=== PATIENT | male | born 1950 | race Hispanic/Latino ===

== ENCOUNTER 2023-05-18 19:30 | Inpatient (IN) | payer BC, MEDICARE ==
[2023-05-18] VITALS (8 sets, daily range): BP systolic 112–178; BP diastolic 45–71; PULSE 56–72; RESP 10–13; O2SAT 98
[~2023-05-18] VITALS: Ht 167.6 cm; Wt 108.0 kg
[2023-05-18] MEDS ORDERED: ROCURONIUM 10MG/1ML SYR 10 MG/ML ML ONE (21:14)
[2023-05-18 21:25] LABS: ABG BASE EXCESS -11.9 mmol/L (-2.0-3.0); ABG HCO3 16.1 mmol/L (21.0-28.0); ABG OXYGEN SATURATION 89.6 % (95.0-99.0); ABG PCO2 45 mmHg (35-48); ABG PH 7.174 (7.35-7.450); CARBON MONOXIDE 0.3; HHb 10.4; PO2, ARTERIAL BG 75.2 mmHg (83.0-108.0); VENT MODE, BG VC (ROOM AIR)
[2023-05-18] MEDS ORDERED: TRAMADOL HCL 50 MG TABLET PO PRN ×2 (21:30)
[2023-05-18] MEDS ORDERED: ACETAMINOPHEN 325 MG TAB PO PRN (21:30)
[2023-05-18] MEDS ORDERED: SODIUM BICARB 50MEQ 50ML VIAL 50 ML ONE (21:38)
[2023-05-18] MEDS ORDERED: SODIUM BICARB 50MEQ 50ML VIAL 150 ML ONE ×2 (21:38→22:07)
[2023-05-18] MEDS ORDERED: FENTANYL CITRATE PF 50 MCG/1 ML 5ML AMP IV ONE (21:53)
[2023-05-18 22:00] LABS: ABG BASE EXCESS -3.7 mmol/L (-2.0-3.0); ABG HCO3 20.8 mmol/L (21.0-28.0); ABG PCO2 36 mmHg (35-48); ABG PH 7.383 (7.35-7.450); CARBON MONOXIDE 0.3; PO2, ARTERIAL BG 73.3 mmHg (83.0-108.0); VENT MODE, BG SIMV (ROOM AIR)
[2023-05-18] MEDS ORDERED: DEXTROSE 50%-WATER 50 ML DISP.SYRIN IV ONE (22:05)
[2023-05-18] MEDS ORDERED: PROPOFOL 1000 MG/100 ML 100 ML IV ONE (22:54)
[2023-05-18 23:45] LABS: HEMATOCRIT 31.3 % (42-54); MEAN CORPUSCULAR HGB CONC 33.2 g/dL (32.0-36.0); MEAN CORPUSCULAR VOLUME 90.2 fL (79-99); NUCLEATED RED BLOOD CELLS 0.2 % (0.0-0.19); PLATELET COUNT (AUTO) 174 K/uL (130-400); RED BLOOD CELL COUNT(AUTO) 3.47 MIL/uL (4.50-6.20); RED CELL DISTRIBUTION WIDTH 13.9 % (11.0-15.5)
[2023-05-18 23:47] LABS: WHITE BLOOD COUNT (AUTO) 33.5 K/uL (4.8-10.8)
[2023-05-19] VITALS (101 sets, daily range): BP systolic 91–202; BP diastolic 38–129; PULSE 44–77; RESP 6–35; TEMP 98.6–99; O2SAT 10–100
[2023-05-19 00:15] LABS: ALBUMIN 2.2 g/dL (3.5-5.0); BILIRUBIN,TOTAL 1.4 mg/dL (0.2-1.0); CREATININE 2.8 mg/dL (0.5-1.5); MAGNESIUM 2.2 mg/dL (1.80-2.40); PHOSPHORUS 7.3 mg/dL (2.5-4.9); POTASSIUM 4.5 mmol/L (3.5-5.1); TOTAL PROTEIN, SERUM 4.7 g/dL (6.0-8.3)
[2023-05-19 00:18] LABS: ABG BASE EXCESS -4.6 mmol/L (-2.0-3.0); ABG HCO3 20.7 mmol/L (21.0-28.0); ABG OXYGEN SATURATION 95.2 % (95.0-99.0); ABG PCO2 39 mmHg (35-48); ABG PH 7.342 (7.35-7.450); CARBON MONOXIDE 0.3; HHb 4.8; PO2, ARTERIAL BG 89.7 mmHg (83.0-108.0); VENT MODE, BG AC (ROOM AIR)
[2023-05-19 00:31] LABS: PARTIAL THROMBOPLASTIN TIME 48.7 SEC (26.3-35.5)
[2023-05-19 00:39] LABS: BODY FLUID RBC 1422372 /cu. mm.; BODY FLUID WBC 6345 /cu. mm.
[2023-05-19 00:42] LABS: INR 4.1 (0.85-1.15); PROTHROMBIN TIME 43.4 SEC (9.6-11.6)
[2023-05-19 01:03] LABS: AMYLASE,BODY FLUID 11 U/L; GLUCOSE,BODY FLUID 11 mg/dL (1-40)
[2023-05-19 01:16] LABS: APPEARANCE BODY FLUID BLOODY (CLEAR); COLOR,BODY FLUID RED (LT YELLOW); PH, BODY FLUID 9; SPECIMENTYPE,BODY FLUID PERICARDIAL; TOTAL VOLUME,BODY FLUID 30 mL
[2023-05-19 01:24] LABS: BAND NEUTROPHILS % (MANUAL) 6 % (0-2); LYMPHOCYTES % (MANUAL) 2 % (22-44); MONOCYTES % (MANUAL) 6 % (2-9); SEGMENTED NEUTROPHILS % 86 % (40-70); TOTAL CELLS COUNTED 100
[2023-05-19 01:25] LABS: MAN.DIFF COMMENT-IMPRESSION MANUAL DIFFERENTIAL; PLATELET MORPHOLOGY COMMENT ADEQUATE; WBC MORPHOLOGY CONSISTENT W/DIFF
[2023-05-19 01:29] LABS: BF LYMPHOCYTE 4 %; BF MONOCYTE 2 %; BF TOTAL CELLS COUNTED 100
[2023-05-19] MEDS ORDERED: EPINEPHRINE PF 1MG (1:1,000) 10 MG in 0.9% NACL 250ML 240 ML IV PRN (02:00)
[2023-05-19] MEDS ORDERED: EPINEPHRINE IV PRN (02:00)
[2023-05-19] MEDS ORDERED: NOREPINEPHRINE 8MG/NS 250ML PREMIX IV SCH (02:00)
[2023-05-19] MEDS ORDERED: LACTATED RINGERS 1000ML 1,000 ML IV ONE (02:00)
[2023-05-19] MEDS ORDERED: NACL 0.9% IV PRN (02:00)
[2023-05-19] MEDS ORDERED: LACTATED RINGERS 1000ML IV SCH (02:00)
[2023-05-19] MEDS ORDERED: CEFAZOLIN SODIUM 1 GM VIAL IVPB SCH (05:00)
[2023-05-19 05:02] LABS: HEMATOCRIT 31.6 % (42-54); MEAN CORPUSCULAR HEMOGLOBIN 29.9 pg (27.0-33.0); MEAN CORPUSCULAR HGB CONC 33.2 g/dL (32.0-36.0); NUCLEATED RED BLOOD CELLS 0.3 % (0.0-0.19); RED BLOOD CELL COUNT(AUTO) 3.51 MIL/uL (4.50-6.20)
[2023-05-19 05:09] LABS: WHITE BLOOD COUNT (AUTO) 36.8 K/uL (4.8-10.8)
[2023-05-19] MEDS: PROPOFOL 1000 MG/100 ML IV PRN ×2 (05:12→11:41)
[2023-05-19 05:21] LABS: CREATININE 2.9 mg/dL (0.5-1.5); MAGNESIUM 2.2 mg/dL (1.80-2.40); PHOSPHORUS 7.2 mg/dL (2.5-4.9)
[2023-05-19] MEDS ORDERED: ALBUMIN (HUMAN) 5% 250 ML IV ONE (08:30)
[2023-05-19] MEDS ORDERED: PHARMACY COMMUNICATION MISC SCH (08:30)
[2023-05-19 08:31] LABS: ABG BASE EXCESS -1.4 mmol/L (-2.0-3.0); ABG HCO3 23.1 mmol/L (21.0-28.0); ABG OXYGEN SATURATION 98.3 % (95.0-99.0); ABG PCO2 38 mmHg (35-48); ABG PH 7.404 (7.35-7.450); CARBON MONOXIDE 0.3; HHb 1.7; PO2, ARTERIAL BG 146.7 mmHg (83.0-108.0); VENT MODE, BG AC-VC (ROOM AIR)
[2023-05-19] MEDS ORDERED: SODIUM BICARB 50MEQ 50ML VIAL IV ONE (09:00)
[2023-05-19] MEDS: CEFAZOLIN SODIUM 2 GM VIAL IVPB SCH ×2 (09:13→17:04)
[2023-05-19] MEDS: PHYTONADIONE 10 MG in 0.9%NACL 50ML 50 ML IVPB SCH (09:14)
[2023-05-19] MEDS ORDERED: ALBUMIN (HUMAN) 5% 250 ML IV SCH (09:30)
[2023-05-19] MEDS: ZOSYN 3.375GM+NS 50ML 50 ML IVPB SCH ×2 (10:21→20:18)
[2023-05-19] MEDS ORDERED: DEXTROSE 50%-WATER 50 ML DISP.SYRIN IV PRN (11:00)
[2023-05-19] MEDS ORDERED: GLUCAGON 1MG KIT 1 MG ML IM PRN (11:00)
[2023-05-19 11:27] LABS: ABG OXYGEN SATURATION 66.5 % (95.0-99.0); BASE EXCESS,VENOUS BLOOD GAS 0.1 (-2.0-3.0); HCO3,VENOUS BLOOD GAS 25.8 (21.0-28.0); PCO2,VENOUS BLOOD GAS 46 (35-48); PH,VENOUS BLOOD GAS 7.368 (7.350-7.450); PO2,VENOUS BLOOD GAS 35.9 mmHg (35.0-45.0); VENT MODE, BG AC-VC (ROOM AIR)
[2023-05-19] MEDS: INSULIN HUMULIN R 100 UNIT/ML 3ML SQ SCH ×3 (11:30→20:47)
[2023-05-19 11:47] LABS: HEMOGLOBIN A1C 7.5 % (4.0-6.0)
[2023-05-19 12:11] LABS: ABG BASE EXCESS -0.2 mmol/L (-2.0-3.0); ABG OXYGEN SATURATION 94.4 % (95.0-99.0); ABG PCO2 37 mmHg (35-48); ABG PH 7.426 (7.35-7.450); CARBON MONOXIDE 0.3; HHb 5.6; PO2, ARTERIAL BG 79.4 mmHg (83.0-108.0); VENT MODE, BG AC-VC (ROOM AIR)
[2023-05-19] MEDS ORDERED: SODIUM BICARB 50MEQ 50ML VIAL IV PRN (13:00)
[2023-05-19] MEDS ORDERED: MAGNESIUM 2GM PREMIX 50ML 50 ML IV PRN (13:00)
[2023-05-19 13:35] LABS: ABG BASE EXCESS 0.1 mmol/L (-2.0-3.0); ABG HCO3 23.5 mmol/L (21.0-28.0); ABG OXYGEN SATURATION 94.1 % (95.0-99.0); ABG PCO2 34 mmHg (35-48); ABG PH 7.462 (7.35-7.450); CARBON MONOXIDE 0.3; HHb 5.9; PO2, ARTERIAL BG 74.2 mmHg (83.0-108.0); VENT MODE, BG SIMV VC PS10 (ROOM AIR)
[2023-05-19] MEDS ORDERED: CALCIUM GLUC 1GM/10ML VIAL ONE ×4 (13:39→20:16)
[2023-05-19] MEDS: CALCIUM GLUC 1GM 1 GM in 0.9%NACL 50ML 50 ML IV PRN ×4 (13:42→20:18)
[2023-05-19 14:35] LABS: ABG BASE EXCESS 1.3 mmol/L (-2.0-3.0); ABG HCO3 23.9 mmol/L (21.0-28.0); ABG OXYGEN SATURATION 95.1 % (95.0-99.0); ABG PCO2 31 mmHg (35-48); ABG PH 7.505 (7.35-7.450); CARBON MONOXIDE 0.3; HHb 4.9; PO2, ARTERIAL BG 77.5 mmHg (83.0-108.0); VENT MODE, BG SIMV-VC PS10 (ROOM AIR)
[2023-05-19 15:35] LABS: ABG BASE EXCESS 3.4 mmol/L (-2.0-3.0); ABG OXYGEN SATURATION 93.9 % (95.0-99.0); ABG PCO2 33 mmHg (35-48); ABG PH 7.519 (7.35-7.450); CARBON MONOXIDE 0.3; HHb 6.1; PO2, ARTERIAL BG 67.7 mmHg (83.0-108.0); VENT MODE, BG SIMV-VC PS10 (ROOM AIR)
[2023-05-19 16:47] LABS: ABG BASE EXCESS 2.9 mmol/L (-2.0-3.0); ABG HCO3 25.3 mmol/L (21.0-28.0); ABG PCO2 32 mmHg (35-48); ABG PH 7.522 (7.35-7.450); CARBON MONOXIDE 0.3; DEVICE COMMENT ALIN; PO2, ARTERIAL BG 69.3 mmHg (83.0-108.0)
[2023-05-19 19:13] LABS: APPEARANCE,URINE CLOUDY (CLEAR); BACTERIA,URINE RARE /HPF (None Seen); BILIRUBIN,URINE NEGATIVE (NEGATIVE); COLOR,URINE LIGHT-YELLOW (YELLOW); GLUCOSE, URINE (UA) >=1000 mg/dL (NEGATIVE); KETONES,URINE NEGATIVE (NEGATIVE); LEUKOCYTE ESTERASE ,URINE NEGATIVE Leu/uL (NEGATIVE); MUCUS,URINE FEW LPF (None Seen); NITRATE,URINE NEGATIVE (NEGATIVE); OCCULT BLOOD,URINE MODERATE (NEGATIVE); PROTEIN,URINE NEGATIVE (NEGATIVE); SQUAMOUS EPITHELIAL CELL,UR RARE /HPF (0-2); UROBILINOGEN,URINE 0.2 mg/dL (0.2-1.0)
[2023-05-19 19:16] LABS: URIC ACID CRYSTALS,URINE Rare /LPF (None Seen)
[2023-05-19 19:34] LABS: ABG BASE EXCESS 3.3 mmol/L (-2.0-3.0); ABG HCO3 27.2 mmol/L (21.0-28.0); ABG OXYGEN SATURATION 98.8 % (95.0-99.0); ABG PCO2 39 mmHg (35-48); ABG PH 7.463 (7.35-7.450); CARBON MONOXIDE 0.3; HHb 1.2; PO2, ARTERIAL BG 218.2 mmHg (83.0-108.0)
[2023-05-19] MEDS ORDERED: POTASSIUM CHLORIDE 20MEQ/100ML 100 ML IV PRN (21:00)
[2023-05-20] VITALS (43 sets, daily range): BP systolic 106–146; BP diastolic 40–88; PULSE 53–70; RESP 12–29; TEMP 97.5–98.4; O2SAT 95–100
[2023-05-20 04:08] LABS: BASOPHILS # (AUTO) 0.08 K/uL (0.00-0.20); BASOPHILS % (AUTO) 0.4 % (0.0-5.0); EOSINOPHILS # (AUTO) 0.01 K/uL (0.00-0.70); EOSINOPHILS % (AUTO) 0.1 % (0.0-8.0); HEMATOCRIT 31.4 % (42-54); IMMATURE GRANULOCYTE ABSOLUTE 0.74 K/uL (0-1); LYMPHOCYTES # (AUTO) 0.4 K/uL (1.0-4.8); LYMPHOCYTES % (AUTO) 2.3 % (21.0-51.0); MEAN CORPUSCULAR HEMOGLOBIN 29.7 pg (27.0-33.0); MEAN CORPUSCULAR HGB CONC 33.4 g/dL (32.0-36.0); MONOCYTES # (AUTO) 0.6 K/uL (0.1-1.0); MONOCYTES % (AUTO) 3.2 % (3.0-13.0); NEUTROPHILS # (AUTO) 16.7 K/uL (1.8-7.7); NUCLEATED RED BLOOD CELLS 0.6 % (0.0-0.19); PLATELET COUNT (AUTO) 166 K/uL (130-400); RED BLOOD CELL COUNT(AUTO) 3.53 MIL/uL (4.50-6.20); RED CELL DISTRIBUTION WIDTH 14.3 % (11.0-15.5); WHITE BLOOD COUNT (AUTO) 18.5 K/uL (4.8-10.8)
[2023-05-20 04:24] LABS: INR 2.92 (0.85-1.15); PROTHROMBIN TIME 31.6 SEC (9.6-11.6)
[2023-05-20 04:26] LABS: PARTIAL THROMBOPLASTIN TIME 44.9 SEC (26.3-35.5)
[2023-05-20 04:26] LABS: ABG OXYGEN SATURATION 94.6 % (95.0-99.0); ABG PCO2 38 mmHg (35-48); ABG PH 7.441 (7.35-7.450); CARBON MONOXIDE 0.3; HHb 5.4; PO2, ARTERIAL BG 78.4 mmHg (83.0-108.0); VENT MODE, BG BIPAP,12,6 (ROOM AIR)
[2023-05-20 04:41] LABS: ALBUMIN 2.4 g/dL (3.5-5.0); BILIRUBIN,TOTAL 1.4 mg/dL (0.2-1.0); CREATININE 2.1 mg/dL (0.5-1.5); POTASSIUM 4.2 mmol/L (3.5-5.1); TOTAL PROTEIN, SERUM 4.5 g/dL (6.0-8.3)
[2023-05-20] MEDS: INSULIN HUMULIN R 100 UNIT/ML 3ML SQ SCH ×4 (06:11→17:18)
[2023-05-20] MEDS ORDERED: CALCIUM GLUC 1GM/10ML VIAL ONE (06:25)
[2023-05-20] MEDS: CALCIUM GLUC 1GM 1 GM in 0.9%NACL 50ML 50 ML IV PRN (06:27)
[2023-05-20] MEDS: PHYTONADIONE 10 MG in 0.9%NACL 50ML 50 ML IVPB SCH (09:25)
[2023-05-20] MEDS: ZOSYN 3.375GM+NS 50ML 50 ML IVPB SCH (09:25)
[2023-05-21] VITALS (11 sets, daily range): BP systolic 125–141; BP diastolic 18–77; PULSE 54–70; RESP 18–20; O2SAT 96–98
[2023-05-21] MEDS: ZOSYN 3.375GM+NS 50ML 50 ML IVPB SCH ×3 (05:55→20:57)
[2023-05-21] MEDS: INSULIN HUMULIN R 100 UNIT/ML 3ML SQ SCH ×3 (06:12→21:14)
[2023-05-21 09:35] LABS: ALBUMIN 2.4 g/dL (3.5-5.0); BILIRUBIN,DIRECT 0.9 mg/dL (0.0-0.3); CREATININE 1.8 mg/dL (0.5-1.5); MAGNESIUM 2.6 mg/dL (1.80-2.40); TOTAL PROTEIN, SERUM 5.1 g/dL (6.0-8.3)
[2023-05-21 11:35] LABS: BASOPHILS # (AUTO) 0.13 K/uL (0.00-0.20); BASOPHILS % (AUTO) 0.7 % (0.0-5.0); EOSINOPHILS # (AUTO) 0.04 K/uL (0.00-0.70); EOSINOPHILS % (AUTO) 0.2 % (0.0-8.0); HEMATOCRIT 37.5 % (42-54); IMMATURE GRANULOCYTE ABSOLUTE 0.95 K/uL (0-1); LYMPHOCYTES # (AUTO) 0.8 K/uL (1.0-4.8); LYMPHOCYTES % (AUTO) 4.2 % (21.0-51.0); MEAN CORPUSCULAR HEMOGLOBIN 29.7 pg (27.0-33.0); MEAN CORPUSCULAR HGB CONC 31.7 g/dL (32.0-36.0); MEAN CORPUSCULAR VOLUME 93.5 fL (79-99); MONOCYTES # (AUTO) 1.1 K/uL (0.1-1.0); MONOCYTES % (AUTO) 6.1 % (3.0-13.0); NEUTROPHILS # (AUTO) 15.2 K/uL (1.8-7.7); NEUTROPHILS % (AUTO) 83.6 % (40.0-77.0); NUCLEATED RED BLOOD CELLS 0.3 % (0.0-0.19); PLATELET COUNT (AUTO) 185 K/uL (130-400); RED BLOOD CELL COUNT(AUTO) 4.01 MIL/uL (4.50-6.20); RED CELL DISTRIBUTION WIDTH 14.7 % (11.0-15.5); WHITE BLOOD COUNT (AUTO) 18.2 K/uL (4.8-10.8)
[2023-05-21] MEDS ORDERED: GLUCAGON 1MG KIT 1 MG ML IM PRN (12:00)
[2023-05-21] MEDS ORDERED: DEXTROSE 50%-WATER 50 ML DISP.SYRIN IV PRN (12:00)
[2023-05-21] MEDS: INSULIN GLARGINE 100 UNITS/ML 10 ML VIAL SQ SCH ×2 (13:23→21:15)
[2023-05-21] MEDS: PHYTONADIONE 10 MG in 0.9%NACL 50ML 50 ML IVPB SCH (13:31)
[2023-05-22] VITALS (10 sets, daily range): BP systolic 96–155; BP diastolic 49–72; PULSE 53–63; RESP 18; O2SAT 94–99
[2023-05-22 04:11] LABS: HEMATOCRIT 34.4 % (42-54); MEAN CORPUSCULAR HEMOGLOBIN 29.5 pg (27.0-33.0); MEAN CORPUSCULAR HGB CONC 32.3 g/dL (32.0-36.0); MEAN CORPUSCULAR VOLUME 91.5 fL (79-99); RED BLOOD CELL COUNT(AUTO) 3.76 MIL/uL (4.50-6.20); WHITE BLOOD COUNT (AUTO) 14.7 K/uL (4.8-10.8)
[2023-05-22 04:39] LABS: ALBUMIN 2.2 g/dL (3.5-5.0); BILIRUBIN,DIRECT 0.8 mg/dL (0.0-0.3); BILIRUBIN,TOTAL 1.6 mg/dL (0.2-1.0); CREATININE 1.4 mg/dL (0.5-1.5); MAGNESIUM 2.2 mg/dL (1.80-2.40); POTASSIUM 3.7 mmol/L (3.5-5.1); TOTAL PROTEIN, SERUM 4.6 g/dL (6.0-8.3)
[2023-05-22] MEDS ORDERED: KCL 20 MEQ ERTAB PO ONE ×2 (06:15→10:30)
[2023-05-22] MEDS ORDERED: POTASSIUM CHLORIDE 10% ELIXIR 20 MEQ/15 ML UDCUP PO PRN (06:30)
[2023-05-22] MEDS ORDERED: POTASSIUM CHLORIDE 20MEQ/100ML 100 ML IV PRN (06:30)
[2023-05-22] MEDS ORDERED: KCL 20 MEQ ERTAB PO PRN (06:30)
[2023-05-22] MEDS: INSULIN HUMULIN R 100 UNIT/ML 3ML SQ SCH ×4 (06:36→21:36)
[2023-05-22] MEDS: INSULIN GLARGINE 100 UNITS/ML 10 ML VIAL SQ SCH ×2 (06:37→21:35)
[2023-05-22] MEDS: CARVEDILOL 12.5 MG TABLET PO SCH ×2 (08:24→21:00)
[2023-05-22] MEDS: ZOSYN 3.375GM+NS 50ML 50 ML IVPB SCH ×2 (08:24→21:34)
[2023-05-22] MEDS ORDERED: AMIODARONE 200 MG TABLET PO SCH (09:00)
[2023-05-22] MEDS ORDERED: FUROSEMIDE 20 MG TABLET PO ONE (10:30)
[2023-05-22] MEDS ORDERED: POLYETHYLENE GLYCOL 3350 17 GM POWD.PACK PO ONE (17:00)
[2023-05-22] MEDS: COLCHICINE 0.6 MG TABLET PO SCH ×2 (17:16→21:34)
[2023-05-22] MEDS: PANTOPRAZOLE 40 MG TAB DR PO SCH (17:17)
[2023-05-22] MEDS: DOCUSATE SODIUM 100 MG CAP PO SCH (17:17)
[2023-05-22] MEDS: NAPROXEN 250 MG TAB PO SCH ×2 (17:17→21:34)
[2023-05-23] VITALS (10 sets, daily range): BP systolic 118–134; BP diastolic 53–68; PULSE 53–60; RESP 18–20; O2SAT 97–100
[2023-05-23 03:25] LABS: HEMATOCRIT 33.5 % (42-54); MEAN CORPUSCULAR HEMOGLOBIN 29.8 pg (27.0-33.0); MEAN CORPUSCULAR HGB CONC 31.6 g/dL (32.0-36.0); MEAN CORPUSCULAR VOLUME 94.1 fL (79-99); RED BLOOD CELL COUNT(AUTO) 3.56 MIL/uL (4.50-6.20); RED CELL DISTRIBUTION WIDTH 15.5 % (11.0-15.5); WHITE BLOOD COUNT (AUTO) 13.8 K/uL (4.8-10.8)
[2023-05-23 03:46] LABS: ALBUMIN 2.2 g/dL (3.5-5.0); BILIRUBIN,DIRECT 0.7 mg/dL (0.0-0.3); BILIRUBIN,TOTAL 1.3 mg/dL (0.2-1.0); CREATININE 1.4 mg/dL (0.5-1.5); MAGNESIUM 2.1 mg/dL (1.80-2.40); TOTAL PROTEIN, SERUM 4.2 g/dL (6.0-8.3)
[2023-05-23] MEDS: INSULIN GLARGINE 100 UNITS/ML 10 ML VIAL SQ SCH ×2 (06:42→22:05)
[2023-05-23] MEDS: INSULIN HUMULIN R 100 UNIT/ML 3ML SQ SCH ×4 (06:42→22:06)
[2023-05-23] MEDS: POLYETHYLENE GLYCOL 3350 17 GM POWD.PACK PO SCH (08:48)
[2023-05-23] MEDS: ZOSYN 3.375GM+NS 50ML 50 ML IVPB SCH ×2 (08:48→21:49)
[2023-05-23] MEDS: NAPROXEN 250 MG TAB PO SCH ×2 (08:49→21:48)
[2023-05-23] MEDS: PANTOPRAZOLE 40 MG TAB DR PO SCH (08:49)
[2023-05-23] MEDS: COLCHICINE 0.6 MG TABLET PO SCH ×2 (08:49→21:47)
[2023-05-23] MEDS: FUROSEMIDE 20 MG TABLET PO SCH (08:49)
[2023-05-23] MEDS: CARVEDILOL 12.5 MG TABLET PO SCH ×2 (08:50→21:49)
[2023-05-23] MEDS: KCL 20 MEQ ERTAB PO SCH (08:51)
[2023-05-23] MEDS: DOCUSATE SODIUM 100 MG CAP PO SCH (17:12)
[2023-05-23] MEDS ORDERED: LEVOFLOXACIN 750 MG/D5W 150ML BAG IV SCH (22:30)
[2023-05-24 00:30] VITALS: BP 158/74; PULSE 56; RESP 18
[2023-05-24 03:30] VITALS: BP 120/63; PULSE 55; RESP 18
[2023-05-24 03:56] LABS: HEMATOCRIT 35.2 % (42-54); MEAN CORPUSCULAR HEMOGLOBIN 29.1 pg (27.0-33.0); MEAN CORPUSCULAR VOLUME 94.1 fL (79-99); RED BLOOD CELL COUNT(AUTO) 3.74 MIL/uL (4.50-6.20); RED CELL DISTRIBUTION WIDTH 15.9 % (11.0-15.5); WHITE BLOOD COUNT (AUTO) 10.6 K/uL (4.8-10.8)
[2023-05-24 04:16] LABS: ALBUMIN 2.1 g/dL (3.5-5.0); BILIRUBIN,TOTAL 1.4 mg/dL (0.2-1.0); CREATININE 1.4 mg/dL (0.5-1.5); MAGNESIUM 2.1 mg/dL (1.80-2.40); POTASSIUM 4.2 mmol/L (3.5-5.1); TOTAL PROTEIN, SERUM 4.6 g/dL (6.0-8.3)
[2023-05-24] MEDS ORDERED: FURO20TA6 PO (06:09)
[2023-05-24] MEDS ORDERED: CARV12.580 PO (06:09)
[2023-05-24] MEDS ORDERED: LEVO750T39 PO (06:09)
[2023-05-24] MEDS ORDERED: COLC0.6T73 PO (06:09)
[2023-05-24] MEDS ORDERED: INSU100V3 SQ (06:14)
[2023-05-24] MEDS ORDERED: INSLAN SQ (06:14)
[2023-05-24] MEDS ORDERED: NAPR-1196 PO (06:14)
[2023-05-24 07:00] VITALS: BP 148/56; PULSE 56; RESP 20
[2023-05-24] MEDS: INSULIN HUMULIN R 100 UNIT/ML 3ML SQ SCH (07:16)
[2023-05-24] MEDS: INSULIN GLARGINE 100 UNITS/ML 10 ML VIAL SQ SCH (07:17)
[2023-05-24 07:30] VITALS: O2SAT 97
[2023-05-24] MEDS: NAPROXEN 250 MG TAB PO SCH (09:10)
[2023-05-24] MEDS: PANTOPRAZOLE 40 MG TAB DR PO SCH (09:10)
[2023-05-24] MEDS: POLYETHYLENE GLYCOL 3350 17 GM POWD.PACK PO SCH (09:10)
[2023-05-24 09:11] VITALS: BP 148/56
[2023-05-24] MEDS: KCL 20 MEQ ERTAB PO SCH (09:11)
[2023-05-24] MEDS: COLCHICINE 0.6 MG TABLET PO SCH (09:11)
[2023-05-24] MEDS: CARVEDILOL 12.5 MG TABLET PO SCH (09:11)
[2023-05-24] MEDS: FUROSEMIDE 20 MG TABLET PO SCH (09:11)
== END 2023-05-24 10:00 | disposition home or self-care (01) | DRG 853 ==
LOC: 2CH 20:59 → 2AH 05-20 15:04
PROVIDERS: ADMIT Internal Medicine; ATTEND Internal Medicine
PROC: 0W9D0ZZ Drainage of Pericardial Cavity, Open Approach (ICD-10-PCS; principal; 2023-05-18 21:05)
PROC: 5A09357 Assistance with Respiratory Ventilation, Less than 24 Consecutive Hours, Continuous Positive Airway Pressure (ICD-10-PCS; 2023-05-20)
PROC: 5A09357 Assistance with Respiratory Ventilation, Less than 24 Consecutive Hours, Continuous Positive Airway Pressure (ICD-10-PCS; 2023-05-23)
DX: A41.9 Sepsis, unspecified organism (principal); J15.1 Pneumonia due to Pseudomonas; J96.01 Acute respiratory failure with hypoxia; K72.00 Acute and subacute hepatic failure without coma; J95.2 Acute pulmonary insufficiency following nonthoracic surgery; N17.0 Acute kidney failure with tubular necrosis; I31.39 Other pericardial effusion (noninflammatory); D68.9 Coagulation defect, unspecified; I31.4 Cardiac tamponade; I30.1 Infective pericarditis; E11.22 Type 2 diabetes mellitus with diabetic chronic kidney disease; I12.9 Hypertensive chronic kidney disease with stage 1 through stage 4 chronic kidney disease, or unspecified chronic kidney disease; I25.10 Atherosclerotic heart disease of native coronary artery without angina pectoris; N18.30 Chronic kidney disease, stage 3 unspecified; E66.01 Morbid (severe) obesity due to excess calories; E78.5 Hyperlipidemia, unspecified; G47.33 Obstructive sleep apnea (adult) (pediatric); I48.0 Paroxysmal atrial fibrillation; Z79.01 Long term (current) use of anticoagulants; Z79.899 Other long term (current) drug therapy; Z91.199 Patient's noncompliance with other medical treatment and regimen due to unspecified reason; Z95.810 Presence of automatic (implantable) cardiac defibrillator
CPT/HCPCS: 36415; 36600; 71045; 80048; 80053; 80076; 81001; 82140; 82150; 82330; 82435; 82803; 82945; 82947; 82948; 83036; 83605; 83615; 83735; 83986; 84100; 84132; 84145; 84157; 84295; 85007; 85018; 85025; 85027; 85384; 85610; 85730; 86140; 87040; 87070; 87071; 87076; 87077; 87116; 87186; 87205; 87206; 88108; 88305; 89051; 93306; 94002; 94003; 94150; 94660; A7048; G0378; J0610; J0690; J1815; J1956; J2543; J2704; J3010; J3430; J3490; J7030; J7040; J7070; P9045; A4600; A4649; A6219; C1713